=== PATIENT | male | born 1985 | race Caucasian/White ===

== ENCOUNTER 2021-02-27 11:18 | Inpatient (IN) | payer MEDICAID ==
[~2021-02-27] VITALS: Ht 172.7 cm; Wt 47.0 kg
[2021-02-27] MEDS ORDERED: LORazepam 1 MG tablet PO ONE ×2 (12:25→21:00)
[2021-02-27] MEDS ORDERED: OXYC-150 PO (12:33)
--- NOTE | 2021-02-27 12:35 | NUR ---
Patient dry heaving again for about 20 minutes and stopped. Continue to monitor.
[2021-02-27 12:38] LABS: BASOPHILS # (AUTO) 0.1 X10'3 (0-0.2); EOSINOPHILS # (AUTO) 0.1 X10'3 (0-0.9); EOSINOPHILS % (AUTO) 1.3 % (0-6); HEMATOCRIT 45.2 % (42.0-52.0); HEMOGLOBIN 15.4 g/dl (14.0-17.9); LYMPHOCYTES # (AUTO) 1.5 X10'3 (1.1-4.8); LYMPHOCYTES % (AUTO) 17.7 % (21-51); MEAN PLATELET VOLUME 9.9 FL (7.4-10.4); MONOCYTES # (AUTO) 0.5 X10'3 (0-0.9); NEUTROPHILS # (AUTO) 6.2 X10'3 (1.8-7.7); PLATELET COUNT 192 X10'3 (140-440); RED BLOOD COUNT 4.81 X10'6 (4.70-6.10); WHITE BLOOD COUNT 8.3 X10'3 (4.5-11.0)
[2021-02-27 12:39] LABS: URINE AMPHETAMINE SCREEN NEGATIVE (Neg); URINE BARBITUATE SCREEN NEGATIVE (Neg); URINE BENZODIAZEPINES SCREEN POSITIVE (Neg); URINE CANNABINOID SCREEN POSITIVE (Neg); URINE COCAINE SCREEN NEGATIVE (Neg); URINE METHADONE SCREEN NEGATIVE (Neg); URINE OPIATE SCREEN NEGATIVE (Neg); URINE PHENCYCLIDINE SCREEN NEGATIVE (Neg)
[2021-02-27 12:45] LABS: CLARITY,URINE CLEAR (Clear); COLOR,URINE YELLOW (Yellow); GLUCOSE, URINE NEGATIVE (Neg); KETONES,URINE 15 mg/dl (Neg); LEUKOCYTE ESTERASE ,URINE NEGATIVE (Neg); NITRITES, URINE NEGATIVE (Neg); OCCULT BLOOD,URINE NEGATIVE (Neg); PH,URINE 5.5 (4.8-8.0); PROTEIN,URINE NEGATIVE (Neg); UROBILINOGEN,URINE 0.2 E.U/dL (0.2-1.0)
[2021-02-27 12:58] LABS: UA COLLECTION TYPE CLN CATCH MIDSTREAM
[2021-02-27 13:04] LABS: ALANINE AMINOTRANSFERASE 37 U/L (12-78); ALBUMIN 4.1 G/DL (3.4-5.0); ALBUMIN/GLOBULIN RATIO 1.5 (1.1-1.5); ALKALINE PHOSPHATASE 83 IU/L (46-116); ANION GAP 7 (8-16); ASPARTATE AMINO TRANSFERASE 15 U/L (10-37); BILIRUBIN,TOTAL 1.7 MG/DL (0.1-1.0); BLOOD UREA NITROGEN 14 MG/DL (7-18); CALCIUM 8.8 MG/DL (8.5-10.1); CHLORIDE 108 MMOL/L (99-107); CREATININE 1.17 MG/DL (0.60-1.10); GLUCOSE 103 MG/DL (70-104); POTASSIUM 3.8 MMOL/L (3.5-5.1); SODIUM 141 MMOL/L (135-145); TOTAL CARBON DIOXIDE 25.8 MMOL/L (24-32); TOTAL PROTEIN 6.9 G/DL (6.4-8.2); eGFR 71 ML/MIN
[2021-02-27 13:13] LABS: ETHANOL < 0.010 GM/DL (0.0-0.010)
--- NOTE | 2021-02-27 14:15 | NUR ---
Patient tells RN he has Cannaboid Hyperemesis. RN advised patient that he tested positive for THC. RN advised patient that he cannot smoke marijuana at all. Patient states I don't even like it. RN emphasized his needing to stop all marijuana use. Patient verbalized understanding.
[2021-02-27] MEDS: oxyCODONE/APAP 5-325mg tablet PO PRN ×2 (15:51→21:59)
--- NOTE | 2021-02-27 16:05 | NUR ---
RN gave patient his pain medication. No distress observed. Continue to monitor.
--- NOTE | 2021-02-27 16:42 | NUR ---
Patient coloring in his room. No distress observed. Continue to monitor.
--- NOTE | 2021-02-27 18:49 | NUR ---
Pt is sitting in bed c/o nausea due to hyperemesis r/t THC use. Pt states he thinks zofran would be helpful but then is conflicted if he should take it because it makes him "hyperactive" and he doesn't think it will work. Pt is going to think about it. Pt states he was forced to use THC because he couldnt find a doctor that would help him with everything wrong.
--- NOTE | 2021-02-27 20:34 | NUR ---
pt sitting up in bed quietly resting. RR even and unlabored
--- NOTE | 2021-02-27 22:00 | NUR ---
Pt reporting nausea, but requests a sandwich stating he feels he will be able to eat after taking ativan prn.
--- NOTE | 2021-02-28 01:31 | NUR ---
Pt is asleep, appears to be resting comfortably rr even and unlabored.
--- NOTE | 2021-02-28 05:00 | NUR ---
Pt awake sitting quietly in bed.
--- NOTE | 2021-02-28 06:30 | NUR ---
Received Pt in bed sleeping w/o distress.
[2021-02-28] MEDS: LORazepam 1 MG tablet PO PRN ×2 (09:15→22:12)
[2021-02-28] MEDS: ondansetron 4mg rapidly disintigrating tab PO PRN (09:51)
--- NOTE | 2021-02-28 11:12 | NUR ---
Pt c/o nausea and anxiety. Orders obtained for Ativan and Zofran.
--- NOTE | 2021-02-28 11:13 | NUR ---
Pt received Atkulwinder 1mg @ 4528 and Reanna 4mg @ 3728.
--- NOTE | 2021-02-28 12:00 | NUR ---
Pt accepted at [facility] @ [facility]. Spoke with charge nurse Dharmesh Oscar RN.
--- NOTE | 2021-02-28 14:29 | NUR ---
Pt spoke with mom and is glad about being transfered to unit in this hospital. Pt calm anfd transfered to [facility] by staff and security.
[2021-02-28 14:30] VITALS: BP 124/79
[2021-02-28] MEDS ORDERED: traZODone 50mg tablet PO PRN (14:55)
[2021-02-28] MEDS ORDERED: mag hydrox/Alum hydrox/simeth 30ml oral suspension PO PRN (14:55)
[2021-02-28] MEDS ORDERED: loperamide 2mg capsule PO PRN (14:55)
[2021-02-28] MEDS ORDERED: acetaminophen 325mg tablet PO PRN ×2 (14:55)
[2021-02-28] MEDS ORDERED: magnesium hydroxide 30ml (MOM) UD suspension PO PRN (14:55)
[2021-02-28] MEDS: hydrOXYzine 25 MG tablet PO PRN (15:38)
--- NOTE | 2021-02-28 16:35 | NUR ---
Admission note: Pt admitted today to [facility] on a 5150 for GD at 1430 from the ER escorted by a mental health tech. Pt has been unable to eat or drink for the last few days due to anxiety. Pt also diagnosed with cannabis induced hyperemesis. Pt states "I snapped, Im going insane." Pt has been going to several doctors and awaiting appointments for diagnosis. Pt appears malnourished. Pt has been diagnosed with Kj Gill, Parvo virus, Cytomeglovirus, metanephrine mass. Pt also has anxiety, depression, panic attacks. Pt cooperative with admission process. Addendum: 02/28/21 at 1833 by Adri Barone RN Pt. scores as a low risk on the [place] Suicide Risk Assessment, endorsed to [facility].
[2021-02-28] MEDS: lactose-reduced food (Ensure Enlive) - 237ml bottle PO SCH (18:19)
[2021-02-28] MEDS: oxyCODONE/APAP 5-325mg tablet PO PRN (22:12)
[2021-03-01] MEDS: lactose-reduced food (Ensure Enlive) - 237ml bottle PO SCH ×3 (08:00→18:00)
[2021-03-01 08:41] VITALS: BP 119/84
[2021-03-01] MEDS: ondansetron 4mg rapidly disintigrating tab PO PRN ×2 (09:23→17:53)
[2021-03-01] MEDS: oxyCODONE/APAP 5-325mg tablet PO PRN ×2 (09:36→21:40)
--- NOTE | 2021-03-01 12:35 | NUR ---
Malnutrition Consult "wt loss and difficulty eating": Pt admit on 5150 DX gravely disabled r/t debilitating anxiety per EMR. BMI 15.8 standing scaled wt 47kg this admit. Pt hx unable to eat or drink for few days ASSISTANT MAINTENANCE MANAGER noted to have nausea 02/28 and 02/27 20min dry heaving episode in ER per EMR. RD contacted pt mother Radha regarding nutrition hx. Radha reports pt hx food aversion for years simply smell of food will make him gag at times w/ no PO intake at least past 3 days ASSISTANT MAINTENANCE MANAGER. Radha reports pt will occasionally snack on beef jerky at times otherwise not eating well ASSISTANT MAINTENANCE MANAGER. Radha requests to bring in beef jerky if sealed package from outside; RD d/w RN who reports safety risk if other patients see special food on meal. RN to discuss w/ MD beef jerky sent from dietary on meals. Radha reports pt living in garage of unfinished house he was working on w/ portable toilet for bathroom past year; RD notified social group worker of living status. Radha also reports pt visibly emaciated w/ very little muscle/fat present consistent w/ pt current BMI. Pt reports recent DX cannabinoid induced hyperemesis syndrome per RN note today; receiving zofran. Pt reports 14-23lb wt loss past 3 months currently refused first breakfast today and 0% first Ensure Enlive ordered TID by MD. Pt appears visibly malnourished per RN/mother and given current wt as well as intake hx meets severe malnutrition criteria; MD notified. Will continue to monitor. Rec: 1. continue regular diet; encourage PO 2. honor pt food preferences; consider additional food item outside traditional pt menu if MD agreeable given severe malnutrition status and food aversion hx 3. Ensure Enlive TIDWM per MD; encourage PO 4. bowel care per rx 5. IF nutrition intake improves; consider routine CMP to monitor for refeeding syndrome 6. weekly wts Addendum: 03/01/21 at [address] Amended: Links added.
[2021-03-01 13:00] LABS: HDL CHOLESTEROL 48 MG/DL (35-60); LDL CHOLESTEROL 136 MG/DL (50-100); TRIGLYCERIDES 76 MG/DL (20-135)
[2021-03-01 13:01] LABS: CHOL/HDL RATIO 4.4 (0.00-4.99); CHOLESTEROL 211 MG/DL (0-200)
--- NOTE | 2021-03-01 17:32 | NUR ---
Nursing Progress Note: Marcelo Legal hold: 5150 Client on involuntary status for GD Report received from nurse with use of SBAR:Shantal Gomez RN Why are they here: [facility] GD at 1430 from the ER escorted by a mental health tech. Pt has been unable to eat or drink for the last few days due to anxiety. Pt also diagnosed with cannabis induced hyperemesis. Pt states "I snapped, Im going insane." Pt has been going to several doctors and awaiting appointments for diagnosis. Pt appears malnourished. Pt has been diagnosed with Kj Gill, Parvo virus, Cytomeglovirus, metanephrine mass. Pt also has anxiety, depression, panic attacks. Pt cooperative with admission process. What has happened this shift: Patient sought out this investigative writer first thing this morning wanting Zofran and Percocet. Patient went on a very long tangent about his recent medical issues.bottom line is he has sever anxiety while he waits for all his testing to be done by a Clarisa Lowery MD from [place]. 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 Patient kept repeating that this is not the kind of help he sought out for, but I guess I did get a bed. Patient stated that he needs a different bed because he does not weigh enough to cushion this bed. Patient did exhibits signs of anxiety, and possible with drawl for poly medication he has been getting in the community, although he denies the medication that shows up from the local pharmacies. S/I, H/I: Denies A/VH: Denies Sleep: napped all day easily aroused ADL's: Independent Group attendance: no Were meds taken: PRN only Any med S/E: none noted Mental Status Exam Appearance: thin, disheveled Eye contact: fair Behavior: rested most of the day, many somatic complaints Speech: WNL, rate and volume Mood: anxiety driven Affect: blunted Thought process: Circumstantial Thought Content: I only said what I said to get admitted, I want a medical bed Cognition: A&O X4 Insight: poor Judgment: poor Interventions: none today PRN's used: Percocet, Zofran Therapeutic interventions: Introduced self and established rapport, maintained a safe and supportive environment, ensured contract for safety, provided clear and simple instructions, monitored behaviors and provided intervention as necessary, monitored medication SE and maintained Q 15min safety checks. Restraints/seclusion/emergency medication: N/A Justification of Continued Inpatient Treatment: Patient was admitted last night for GD, [facility] will provide a safe and therapeutic environment. Patient did state he is open to some kind of treatment, possible for the anxiety from all his medical complaints.
[2021-03-01] MEDS ORDERED: lithium carbonate 150mg capsule PO SCH (21:00)
[2021-03-01] MEDS ORDERED: polyethylene glycol 3350 17gm powd pack PO ONE (21:30)
[2021-03-01] MEDS: LORazepam 1 MG tablet PO PRN (21:40)
--- NOTE | 2021-03-02 03:45 | NUR ---
Nursing Progress Note: Marcelo Legal hold: 5150 Client on involuntary status for GD Report received from nurse with use of SBAR: DAIANA Cuevas Why are they here: [facility] for GD at 1430 from the ER escorted by a mental health tech. Pt has been unable to eat or drink for the last few days due to anxiety. Pt also diagnosed with cannabis induced hyperemesis. Pt states "I snapped, Im going insane." Pt has been going to several doctors and awaiting appointments for diagnosis. Pt appears malnourished. Pt has been diagnosed with Kj Gill, Parvo virus, Cytomeglovirus, metanephrine mass. Pt also has anxiety, depression, panic attacks. Pt cooperative with admission process. What has happened this shift: Received pt sitting up, awake on his bed. Pt cooperative with hs assessment and stated at that time he had no pain and pt had no requests. Pt later c/o pain and c/o constipation. Pt given ativan for anxiety, miralax for constipation and percocet for pain. Pt asleep by 2129, was awoken by another pt at 0230 and went to rec room and fell asleep on the floor around 0300. S/I, H/I: Denies A/VH: Denies Sleep: napped all day easily aroused ADL's: Independent Group attendance: no Were meds taken: PRN only Any med S/E: none noted Mental Status Exam Appearance: thin, disheveled Eye contact: fair Behavior: pt asleep by 2129, awoken at 0230 and fell back to sleep on floor of rec room at 0300. Speech: WNL, rate and volume Mood: anxiety driven Affect: blunted Thought process: Circumstantial Thought Content: I only said what I said to get admitted, I want a medical bed Cognition: A&O X4 Insight: poor Judgment: poor Interventions: none today PRN's used: Percocet, ativan, miralax Therapeutic interventions: Introduced self and established rapport, maintained a safe and supportive environment, ensured contract for safety, provided clear and simple instructions, monitored behaviors and provided intervention as necessary, monitored medication SE and maintained Q 15min safety checks. Restraints/seclusion/emergency medication: N/A Justification of Continued Inpatient Treatment: Patient was admitted last night for GD, [facility] will provide a safe and therapeutic environment. Patient did state he is open to some kind of treatment, possible for the anxiety from all his medical complaints.
[2021-03-02] MEDS: oxyCODONE/APAP 5-325mg tablet PO PRN (07:44)
[2021-03-02 07:57] VITALS: BP 117/72
[2021-03-02] MEDS: lactose-reduced food (Ensure Enlive) - 237ml bottle PO SCH ×3 (08:10→18:01)
[2021-03-02] MEDS: hydrOXYzine 25 MG tablet PO PRN (12:42)
[2021-03-02] MEDS: ondansetron 4mg rapidly disintigrating tab PO PRN (12:42)
--- NOTE | 2021-03-02 17:44 | NUR ---
Nursing Progress Note: Marcelo Legal hold: 5150 Client on involuntary status for GD Report received from nurse with use of SBAR: Shantal Gomez RN Why are they here: Pt admitted today to [facility] on a 5150 for GD at 1430 from the ER escorted by a mental health tech. Pt has been unable to eat or drink for the last few days due to anxiety. Pt also diagnosed with cannabis induced hyperemesis. Pt states "I snapped, Im going insane." Pt has been going to several doctors and awaiting appointments for diagnosis. Pt appears malnourished. Pt has been diagnosed with Kj Gill, Parvo virus, Cytomeglovirus, metanephrine mass. Pt also has anxiety, depression, panic attacks. Pt cooperative with admission process. What has happened this shift: Patient noted sitting in the recreation room upon change of shift. He approached this telegraphic typewriter mechanic reporting lack of sleep throughout the night due to another patient on the unit screaming. He c/o head and neck pain and was given PRN Percocet per order with effectiveness. He participated in the community room for breakfast, noted socializing with peers. Patient ate 100% of his breakfast and ensure drink this morning. He is polite, composed, and cooperative with care. Patient participated in group therapy today, noted sitting quietly listening in on the conversation. He approached this telegraphic typewriter mechanic at lunch time with c/o nausea and feelings of anxiety. Patient endorsed that he is feeling anxious from concentrating on a puzzle for too long. Patient given PRN Atarax for anxiety and PRN Zofran for nausea with effectiveness. He was observed sitting in the recreation room after lunch, watching television with peers. 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 Patient approached this telegraphic typewriter mechanic asking if he could be weighed to see how much weight he has gained in the last two days. Patient noted patting his stomach and saying that he is feeling more filled out now. He was active on the unit throughout the day, spending the majority of his time in the recreation room with peers. S/I, H/I: Denies A/VH: Denies Sleep: Patient slept 4.75 hours last night per NOC shift, no naps noted today ADL's: Independent Group attendance: Yes Were meds taken: Yes Any med S/E: None noted or observed Mental Status Exam Appearance: Thin male, disheveled, messy hair, wearing colorful t-shirt Eye contact: Good Behavior: Anxious, social Speech: Clear, WNL Mood: Pleasant, cooperative Affect: Blunted Thought process: Circumstantial Thought Content: Meeting needs. Wanting to discharge home tomorrow. Cognition: A&O X4 Insight: Poor Judgment: Poor Interventions PRN's used: Percocet, Ativan Therapeutic interventions: Introduced self and established rapport, maintained a safe and supportive environment, ensured contract for safety, provided clear and simple instructions, monitored behaviors and provided intervention as necessary, medication monitoring and education, and maintained Q 15min safety checks. Restraints/seclusion/emergency medication: N/A Justification of Continued Inpatient Treatment: Patient requires a safe and supportive environment as well as monitoring by staff, milieu, group, and individual counseling. He will be discharged home when able to formulate a safe plan.
[2021-03-02] MEDS ORDERED: LORazepam 1 MG tablet PO PRN (17:50)
[2021-03-02 19:00] VITALS: BP 105/62
[2021-03-02] MEDS: LORazepam 0.5 MG tablet PO PRN (19:20)
[2021-03-02] MEDS ORDERED: QUEtiapine 25mg tablet PO SCH (21:00)
[2021-03-02] MEDS ORDERED: polyethylene glycol 3350 17gm powd pack PO SCH (21:00)
--- NOTE | 2021-03-03 02:17 | NUR ---
Nursing Progress Note: Marcelo Legal hold: 5150 Client on involuntary status for GD Report received from nurse with use of SBAR: Cathryn AHMADI Why are they here: Pt admitted today to [facility] on a 5150 for GD at 1430 from the ER escorted by a mental health tech. Pt has been unable to eat or drink for the last few days due to anxiety. Pt also diagnosed with cannabis induced hyperemesis. Pt states "I snapped, Im going insane." Pt has been going to several doctors and awaiting appointments for diagnosis. Pt appears malnourished. Pt has been diagnosed with Kj Gill, Parvo virus, Cytomeglovirus, metanephrine mass. Pt also has anxiety, depression, panic attacks. Pt cooperative with admission process. What has happened this shift: Patient noted to be sitting on his bed resting. PT cooperative with care and engaged in conversation. Denies MH symptoms, no depression or anxiety, however had some anxiety last night due to a pt screaming. He stated he also had a migraine last night. Before snacks pt came to this RN requested to check his blood sugar because he felt it was running in his veins. Pt showered and requited Ativan because he was slightly anxious (08/29.) Pt given 0.5MG of Ativan with good effect. Pt up for snacks and took HS meds without issue. S/I, H/I: Denies A/VH: Denies Sleep: ADL's: Independent Group attendance: Yes Were meds taken: Yes Any med S/E: None noted or observed Mental Status Exam Appearance: Thin male, disheveled, messy hair, wearing colorful t-shirt Eye contact: Good Behavior: Anxious, social Speech: Clear, WNL Mood: Pleasant, cooperative Affect: Blunted Thought process: Circumstantial Thought Content: Meeting needs. Wanting to discharge home tomorrow. Cognition: A&O X4 Insight: Poor Judgment: Poor Interventions PRN's used: Ativan Therapeutic interventions: Introduced self and established rapport, maintained a safe and supportive environment, ensured contract for safety, provided clear and simple instructions, monitored behaviors and provided intervention as necessary, medication monitoring and education, and maintained Q 15min safety checks. Restraints/seclusion/emergency medication: N/A Justification of Continued Inpatient Treatment: Patient requires a safe and supportive environment as well as monitoring by staff, milieu, group, and individual counseling. He will be discharged home when able to formulate a safe plan.
[2021-03-03] MEDS: oxyCODONE/APAP 5-325mg tablet PO PRN (06:13)
[2021-03-03 07:00] VITALS: BP 118/64
[2021-03-03] MEDS: lactose-reduced food (Ensure Enlive) - 237ml bottle PO SCH ×2 (08:42→13:39)
[2021-03-03] MEDS: LORazepam 0.5 MG tablet PO PRN (09:45)
[2021-03-03] MEDS ORDERED: LORA-269 PO ×2 (13:05→13:48)
[2021-03-03] MEDS ORDERED: HYDR-3686 PO (13:05)
[2021-03-03] MEDS ORDERED: polyethylene glycol 3350 pkt PO (13:05)
[2021-03-03] MEDS ORDERED: STORE MEDs IN PHARMACY MC (13:05)
[2021-03-03] MEDS ORDERED: ONDA4TAB12 PO (13:05)
[2021-03-03] MEDS ORDERED: QUET50TA PO (13:05)
--- NOTE | 2021-03-03 15:47 | NUR ---
Discharge Note: Pt. received DC instruction DC @3184 via his Mom plans to return to his residence, he denies S/I H/I. Pt is able to describe a plan for food and fci and safety. DC instructions signed, meds from pharmacy returned to pt. and he understands instructions.Wound pictures of Lt. hand completed and placed in chart.
== END 2021-03-03 15:40 | disposition home or self-care (01) | DRG 753 ==
LOC: ER 11:19 → ED HOLD 02-28 12:10 → ADULT MH 02-28 15:15
PROVIDERS: ADMIT Psychiatry & Neurology Psychiatry; ATTEND Psychiatry & Neurology Psychiatry
DX: F39 Unspecified mood [affective] disorder (principal); E46 Unspecified protein-calorie malnutrition; F45.9 Somatoform disorder, unspecified; F12.90 Cannabis use, unspecified, uncomplicated; G89.29 Other chronic pain; K59.00 Constipation, unspecified; D35.00 Benign neoplasm of unspecified adrenal gland; R11.2 Nausea with vomiting, unspecified; F90.9 Attention-deficit hyperactivity disorder, unspecified type; F41.0 Panic disorder [episodic paroxysmal anxiety]; Z82.49 Family history of ischemic heart disease and other diseases of the circulatory system; Z88.8 Allergy status to other drugs, medicaments and biological substances; Z68.1 Body mass index [BMI] 19.9 or less, adult; Z81.1 Family history of alcohol abuse and dependence; Z80.42 Family history of malignant neoplasm of prostate; Z81.8 Family history of other mental and behavioral disorders; Z79.899 Other long term (current) drug therapy
CPT/HCPCS: 36415; 80053; 80061; 80305; 80320; 81003; 82948; 83036; 84443; 85025; 87081; 99285; Q0177

== ENCOUNTER 2023-06-17 15:54 | Emergency (ER) | payer MEDICAID ==
[~2023-06-17] VITALS: Ht 172.7 cm; Wt 53.6 kg
[~2023-06-17 15:54] MED LIST: HYDR-3686 PO; LORA-269 PO; ONDA4TAB12 PO; OXYC-150 PO; QUET50TA PO; STORE MEDs IN PHARMACY MC; polyethylene glycol 3350 pkt PO
[2023-06-17 17:34] LABS: BASOPHILS # (AUTO) 0.1 X10'3 (0-0.2); BASOPHILS % (AUTO) 0.8 % (0-1); EOSINOPHILS % (AUTO) 0.1 % (0-6); HEMATOCRIT 45.5 % (42.0-52.0); HEMOGLOBIN 15.7 g/dl (14.0-17.9); LYMPHOCYTES # (AUTO) 1.5 X10'3 (1.1-4.8); LYMPHOCYTES % (AUTO) 14.8 % (21-51); MEAN CORPUSCULAR HGB CONC 34.5 g/dL (33.0-36.5); MEAN CORPUSCULAR VOLUME 92.7 FL (78-98); MEAN PLATELET VOLUME 9.6 FL (7.4-10.4); MONOCYTES # (AUTO) 0.6 X10'3 (0-0.9); MONOCYTES % (AUTO) 5.8 % (2-12); NEUTROPHILS % (AUTO) 78.5 % (42-75); PLATELET COUNT 244 X10'3 (140-440); RED BLOOD COUNT 4.91 X10'6 (4.70-6.10); RED CELL DISTRIBUTION WIDTH 12.9 % (11.5-14.5); WHITE BLOOD COUNT 10.2 X10'3 (4.5-11.0)
[2023-06-17 17:39] LABS: ALANINE AMINOTRANSFERASE 32 U/L (12-78); ALBUMIN 4.1 G/DL (3.4-5.0); ALBUMIN/GLOBULIN RATIO 1.3 (1.1-1.5); ALKALINE PHOSPHATASE 76 IU/L (46-116); ANION GAP 10 (8-16); ASPARTATE AMINO TRANSFERASE 16 U/L (10-37); BILIRUBIN,TOTAL 1.8 MG/DL (0.1-1.0); BLOOD UREA NITROGEN 10 MG/DL (7-18); BUN/CREATININE RATIO 9.7 (10.0-20.0); CALCIUM 9.3 MG/DL (8.5-10.1); CHLORIDE 105 MMOL/L (99-107); CREATININE 1.03 MG/DL (0.60-1.10); ETHANOL < 10 MG/DL (<10); GLUCOSE 104 MG/DL (70-104); POTASSIUM 4.2 MMOL/L (3.5-5.1); SODIUM 143 MMOL/L (135-145); TOTAL CARBON DIOXIDE 28.2 MMOL/L (24-32); TOTAL PROTEIN 7.3 G/DL (6.4-8.2); eCRCL 75 ML/MIN; eGFR 81 ML/MIN
[2023-06-17 19:48] LABS: URINE AMPHETAMINE SCREEN NEGATIVE (Neg); URINE BARBITUATE SCREEN NEGATIVE (Neg); URINE BENZODIAZEPINES SCREEN POSITIVE (Neg); URINE CANNABINOID SCREEN POSITIVE (Neg); URINE COCAINE SCREEN NEGATIVE (Neg); URINE METHADONE SCREEN NEGATIVE (Neg); URINE OPIATE SCREEN NEGATIVE (Neg); URINE PHENCYCLIDINE SCREEN NEGATIVE (Neg)
[2023-06-17] MEDS ORDERED: LORazepam 1 MG tablet PO ONE (20:10)
[2023-06-17] MEDS ORDERED: oxyCODONE/APAP 10/325mg tablet PO ONE (20:10)
[2023-06-17] MEDS ORDERED: zolpidem 5mg tablet PO ONE (23:35)
[2023-06-17] MEDS ORDERED: diphenhydrAMINE 25mg capsule PO ONE (23:35)
[2023-06-18 02:02] VITALS: BP 104/57; PULSE 115; TEMP 97.8; O2SAT 96
[2023-06-18] MEDS ORDERED: ALPR-624 PO (02:29)
[2023-06-18] MEDS ORDERED: ALPRAZolam 0.5mg tablet PO PRN (02:50)
[2023-06-18 05:15] LABS: BILIRUBIN,URINE NEGATIVE (Neg); CLARITY,URINE CLEAR (Clear); COLOR,URINE YELLOW (Yellow); GLUCOSE, URINE NEGATIVE (Neg); KETONES,URINE >=80 mg/dl (Neg); LEUKOCYTE ESTERASE ,URINE NEGATIVE (Neg); NITRITES, URINE NEGATIVE (Neg); OCCULT BLOOD,URINE NEGATIVE (Neg); PROTEIN,URINE NEGATIVE (Neg); UROBILINOGEN,URINE 0.2 E.U/dL (0.2-1.0)
[2023-06-18 05:26] LABS: UA COLLECTION TYPE NON-SPECIFIED
[2023-06-18 07:25] VITALS: RESP 16
[2023-06-18 08:01] LABS: THYROID STIMULATING HORMONE 1.02 ulU/ml (0.34-4.50)
[2023-06-18 12:30] LABS: ACETAMINOPHEN < 2.0 UG/ML (10-30)
== END 2023-06-18 12:35 | disposition home or self-care (01) ==
LOC: ER 15:55
DX: G62.9 Polyneuropathy, unspecified (principal); Z20.822 Contact with and (suspected) exposure to COVID-19; R53.1 Weakness; F41.9 Anxiety disorder, unspecified; R11.0 Nausea; F32.A Depression, unspecified; Z88.8 Allergy status to other drugs, medicaments and biological substances; Z79.899 Other long term (current) drug therapy; G89.29 Other chronic pain
CPT/HCPCS: 36415; 80053; 80305; 80320; 80329; 81003; 84443; 85025; 87811; 99284; Q0163